=== PATIENT | female | born 1990 | race Caucasian/White ===

== ENCOUNTER 2018-11-02 18:15 | Inpatient (IN) | payer OTHER ==
[~2018-11-02] VITALS: Ht 167.6 cm; Wt 87.3 kg
[2018-11-02] MEDS ORDERED: D5%-LACTATED RINGERS 1,000 ML IV SCH (18:48)
[2018-11-02] MEDS ORDERED: OXYTOCIN 30U/ 0.9% NaCL 500ML 500 ML IV ONE (18:48)
[2018-11-02] MEDS ORDERED: BETAMETHASONE 6 MG/ML, 5ML IM ONE (18:57)
[2018-11-02] MEDS ORDERED: ONDANSETRON 2MG/ML, 2ML IVPush PRN (19:00)
[2018-11-02] MEDS ORDERED: PLEASE ENTER HEIGHT AND WEIGHT MC SCH (19:00)
[2018-11-02] MEDS ORDERED: TERBUTALINE 1 MG/ML, 1ML IVPush PRN (19:00)
[2018-11-02] MEDS ORDERED: PLEASE ENTER ALLERGIES MC SCH (19:00)
[2018-11-02] MEDS ORDERED: TERBUTALINE 1 MG/ML, 1ML SQ PRN (19:00)
[2018-11-02 19:04] LABS: BASOPHILS # (AUTO) 0.06 x10^3/uL (0-0.1); BASOPHILS % (AUTO) 0 % (0-1); EOSINOPHILS # (AUTO) 0.22 x10^3/uL (0-0.4); EOSINOPHILS % (AUTO) 2 % (1-7); LYMPHOCYTES # (AUTO) 2.79 x10^3/uL (1-3.4); LYMPHOCYTES % (AUTO) 19 % (22-44); MD NO; MEAN CORPUSCULAR HEMOGLOBIN 31.3 pg (27.0-34.8); MEAN CORPUSCULAR HGB CONC 33.3 g/dL (32.4-35.8); MEAN CORPUSCULAR VOLUME 94.1 fL (80-100); MEAN PLATELET VOLUME 8.2 fL (7.4-10.4); MONOCYTES # (AUTO) 1.37 x10^3/uL (0.2-0.8); MONOCYTES % (AUTO) 9 % (2-9); NEUTROPHILS # (AUTO) 10.57 x10^3/uL (1.8-6.8); NEUTROPHILS % (AUTO) 70 % (42-75); PLATELET COUNT 357 x10^3/uL (130-400); RED BLOOD COUNT 4.46 x10^6/uL (3.82-5.3)
[2018-11-02] MEDS: CLINDAMYCIN PMX 900MG/50ML 50 ML IVPB SCH (19:05)
[2018-11-02] MEDS: BETAMETHASONE 6 MG/ML, 5ML IM SCH (19:05)
[2018-11-02] MEDS: LACTATED RINGERS 1,000 ML IV SCH (19:10)
[2018-11-02 19:30] VITALS: BP 117/77
[2018-11-02] MEDS ORDERED: SODIUM CITRATE/CITRIC ACID 30 ML UDC PO PRN (19:30)
[2018-11-02] MEDS ORDERED: CALCIUM CARBONATE 500 MG TAB.CHEW PO PRN (19:30)
[2018-11-02] MEDS ORDERED: METOCLOPRAMIDE 5 MG/ML, 2ML IVPush PRN (19:30)
[2018-11-02] MEDS ORDERED: NEWBORN KIT ONE (20:39)
[2018-11-02] MEDS ORDERED: MISOPROSTOL 200 MCG TABLET ONE (20:39)
[2018-11-02] MEDS ORDERED: LIDOCAINE 1%, 20ML ONE (20:39)
[2018-11-02] MEDS ORDERED: OXYTOCIN 30U/ 0.9% NaCL 500ML 500 ML ONE (20:39)
[2018-11-03] MEDS: LACTATED RINGERS 1,000 ML IV SCH ×4 (01:48→14:01)
[2018-11-03] MEDS ORDERED: CLINDAMYCIN PMX 900MG/50ML 50 ML ONE (03:21)
[2018-11-03] MEDS: CLINDAMYCIN PMX 900MG/50ML 50 ML IVPB SCH (03:24)
[2018-11-03] MEDS ORDERED: FENTANYL/BUPIV./NS/PF 250 ML EPIDCONT SCH ×2 (04:50→11:11)
[2018-11-03] MEDS ORDERED: FENTANYL PF 500 MCG, BUPIVACAINE/PF 0.5%, 30ML 62.5 ML in SODIUM CHLORIDE 0.9% 177.5 ML EPIDCONT SCH (05:00)
[2018-11-03] MEDS ORDERED: OXYTOCIN 30U/ 0.9% NaCL 500ML 500 ML IV PRN (07:03)
[2018-11-03] MEDS ORDERED: OXYTOCIN 30U/ 0.9% NaCL 500ML 0 ML ONE (07:07)
[2018-11-03 07:15] VITALS: BP 116/68
[2018-11-03] MEDS: BETAMETHASONE 6 MG/ML, 5ML IM SCH (08:09)
[2018-11-03] MEDS ORDERED: VANCOMYCIN PMX 1GM/200ML 200 ML IV SCH (09:00)
[2018-11-03] MEDS ORDERED: LACTATED RINGERS 1,000 ML IVBOLUS PRN (11:30)
[2018-11-03] MEDS ORDERED: EPHEDRINE 50 MG/ML, 1ML IVPush PRN (11:30)
[2018-11-03] MEDS ORDERED: NALOXONE 0.4 MG/ML, 1ML IVPush PRN (11:30)
[2018-11-03] MEDS ORDERED: LACTATED RINGERS 1,000 ML IV SCH (12:00)
[2018-11-03] MEDS ORDERED: FENTANYL PF 100 MCG/2ML ONE ×3 (12:37→14:47)
[2018-11-03] MEDS: FENTANYL PF 100 MCG/2ML IVPush PRN ×3 (12:43→14:51)
[2018-11-03] MEDS ORDERED: BUPIVACAINE 0.25% ONE ×2 (15:27→15:30)
[2018-11-03] MEDS ORDERED: EPHEDRINE 50 MG/ML, 1ML ONE (16:05)
[2018-11-03] MEDS ORDERED: CALCIUM CARBONATE 500 MG TAB.CHEW ONE (18:14)
[2018-11-03] MEDS ORDERED: OXYcodone IR 5MG TABLET PO PRN (20:00)
[2018-11-03] MEDS ORDERED: MISOPROSTOL 200 MCG TABLET PR PRN (20:00)
[2018-11-03] MEDS ORDERED: ONDANSETRON 2MG/ML, 2ML IV PRN (20:00)
[2018-11-03] MEDS ORDERED: SIMETHICONE 80 MG CHEW TAB PO PRN (20:00)
[2018-11-03] MEDS ORDERED: OXYcodone/APAP 5/325MG TABLET PO PRN (20:00)
[2018-11-03] MEDS ORDERED: OXYTOCIN 30U/ 0.9% NaCL 500ML 500 ML ONE (20:21)
[2018-11-03] MEDS ORDERED: IBUPROFEN 600 MG TABLET ONE (21:51)
[2018-11-03] MEDS: IBUPROFEN 600 MG TABLET PO PRN (21:52)
[2018-11-03] MEDS: OXYTOCIN 30U/ 0.9% NaCL 500ML 500 ML IV SCH (21:53)
[2018-11-03 22:50] VITALS: BP 104/65
[2018-11-04 03:53] LABS: MEAN CORPUSCULAR HEMOGLOBIN 31.8 pg (27.0-34.8); MEAN CORPUSCULAR HGB CONC 33.8 g/dL (32.4-35.8); MEAN CORPUSCULAR VOLUME 94.1 fL (80-100); MEAN PLATELET VOLUME 8.6 fL (7.4-10.4); PLATELET COUNT 308 x10^3/uL (130-400); RED BLOOD COUNT 3.52 x10^6/uL (3.82-5.3); RED CELL DISTRIBUTION WIDTH 13.6 % (9.6-15.2)
[2018-11-04 04:15] LABS: BASOPHILS # (AUTO) 0.05 x10^3/uL (0-0.1); BASOPHILS % (AUTO) 0 % (0-1); EOSINOPHILS # (AUTO) 0.01 x10^3/uL (0-0.4); EOSINOPHILS % (AUTO) 0 % (1-7); LYMPHOCYTES # (AUTO) 2.05 x10^3/uL (1-3.4); LYMPHOCYTES % (AUTO) 9 % (22-44); MD SCAN; MONOCYTES # (AUTO) 2.25 x10^3/uL (0.2-0.8); MONOCYTES % (AUTO) 9 % (2-9); NEUTROPHILS # (AUTO) 19.83 x10^3/uL (1.8-6.8); NEUTROPHILS % (AUTO) 82 % (42-75)
[2018-11-04 04:22] VITALS: BP 112/67
[2018-11-04] MEDS: IBUPROFEN 600 MG TABLET PO PRN ×3 (04:27→16:22)
[2018-11-04] MEDS: OXYTOCIN 30U/ 0.9% NaCL 500ML 500 ML IV SCH ×2 (05:53→15:53)
[2018-11-04 08:10] VITALS: BP 108/70
[2018-11-04] MEDS: PRENATAL VIT/IRON/FA 1 EACH TABLET PO SCH (08:16)
[2018-11-04] MEDS: DOCUSATE 100 MG CAPSULE PO PRN ×2 (08:16→21:53)
[2018-11-04 12:00] VITALS: BP 115/78
[2018-11-04 16:24] VITALS: BP 108/70
[2018-11-04 19:40] VITALS: BP 108/70
[2018-11-04] MEDS ORDERED: CALCIUM CARBONATE 500 MG TAB.CHEW PO PRN (20:00)
[2018-11-04] MEDS ORDERED: CALCIUM CARBONATE 500 MG TAB.CHEW ONE (20:01)
[2018-11-04] MEDS: ACETAMINOPHEN 325 MG TABLET PO PRN (21:54)
[2018-11-05] MEDS: IBUPROFEN 600 MG TABLET PO PRN ×3 (00:09→17:12)
[2018-11-05 07:40] VITALS: BP 123/81
[2018-11-05] MEDS: PRENATAL VIT/IRON/FA 1 EACH TABLET PO SCH (07:51)
[2018-11-05] MEDS: DOCUSATE 100 MG CAPSULE PO PRN ×2 (07:51→19:54)
[2018-11-05] MEDS: ACETAMINOPHEN 325 MG TABLET PO PRN ×2 (12:47→19:54)
[2018-11-05 17:14] VITALS: BP 119/73
[2018-11-05 19:04] LABS: BASOPHILS # (AUTO) 0.05 x10^3/uL (0-0.1); BASOPHILS % (AUTO) 0 % (0-1); EOSINOPHILS # (AUTO) 0.33 x10^3/uL (0-0.4); EOSINOPHILS % (AUTO) 2 % (1-7); LYMPHOCYTES # (AUTO) 3.71 x10^3/uL (1-3.4); LYMPHOCYTES % (AUTO) 21 % (22-44); MD SCAN; MEAN CORPUSCULAR HEMOGLOBIN 31.5 pg (27.0-34.8); MEAN CORPUSCULAR VOLUME 95.5 fL (80-100); MEAN PLATELET VOLUME 8.3 fL (7.4-10.4); MONOCYTES % (AUTO) 10 % (2-9); NEUTROPHILS # (AUTO) 12.06 x10^3/uL (1.8-6.8); NEUTROPHILS % (AUTO) 67 % (42-75); PLATELET COUNT 350 x10^3/uL (130-400); RED BLOOD COUNT 4.05 x10^6/uL (3.82-5.3); RED CELL DISTRIBUTION WIDTH 13.6 % (9.6-15.2)
[2018-11-05 19:40] VITALS: BP 113/74
== END 2018-11-05 22:36 | disposition home or self-care (01) | DRG 807 ==
LOC: LDOP 18:15 → LDIP 18:51 → 2NW 11-03 22:02
PROVIDERS: ADMIT Obstetrics & Gynecology; ATTEND Obstetrics & Gynecology
PROC: 10E0XZZ Delivery of Products of Conception, External Approach (ICD-10-PCS; principal; 2018-11-03)
PROC: 0KQM0ZZ Repair Perineum Muscle, Open Approach (ICD-10-PCS; 2018-11-03)
PROC: 0UQMXZZ Repair Vulva, External Approach (ICD-10-PCS; 2018-11-03)
PROC: 3E0R3BZ Introduction of Anesthetic Agent into Spinal Canal, Percutaneous Approach (ICD-10-PCS; 2018-11-03)
PROC: 00HU33Z Insertion of Infusion Device into Spinal Canal, Percutaneous Approach (ICD-10-PCS; 2018-11-03)
DX: O42.913 Preterm premature rupture of membranes, unspecified as to length of time between rupture and onset of labor, third trimester (principal); Z37.0 Single live birth; Z88.0 Allergy status to penicillin; O69.81X0 Labor and delivery complicated by cord around neck, without compression, not applicable or unspecified; O70.1 Second degree perineal laceration during delivery; O71.82 Other specified trauma to perineum and vulva; Z3A.35 35 weeks gestation of pregnancy; Z82.49 Family history of ischemic heart disease and other diseases of the circulatory system
CPT/HCPCS: 36415; 85025; 86850; 86870; 86900; 86922; 86923; 89060; G0378; J0702; J3010; J3370; J3490; J2590; J7120; Q0114

== ENCOUNTER 2020-10-06 12:39 | Inpatient (IN) | payer OTHER ==
[~2020-10-06] VITALS: Ht 167.6 cm; Wt 89.5 kg
[2020-10-06] MEDS ORDERED: NEWBORN KIT ONE (12:51)
[2020-10-06] MEDS ORDERED: LIDOCAINE 1%, 20ML ONE (12:51)
[2020-10-06] MEDS ORDERED: MISOPROSTOL 200 MCG TABLET ONE ×2 (12:51→12:52)
[2020-10-06] MEDS ORDERED: OXYTOCIN 30U/ 0.9% NaCL 500ML 500 ML ONE (12:52)
[2020-10-06] MEDS ORDERED: ONDANSETRON 2MG/ML, 2ML IVPush PRN ×2 (13:00→14:00)
[2020-10-06] MEDS ORDERED: D5%-LACTATED RINGERS 1,000 ML IV SCH (13:00)
[2020-10-06] MEDS ORDERED: FENTANYL PF 100 MCG/2ML IVPush PRN (13:00)
[2020-10-06] MEDS ORDERED: CALCIUM CARBONATE 500 MG TAB.CHEW PO PRN (13:00)
[2020-10-06] MEDS ORDERED: TERBUTALINE 1 MG/ML, 1ML IVPush PRN (13:00)
[2020-10-06] MEDS ORDERED: TERBUTALINE 1 MG/ML, 1ML SQ PRN (13:00)
[2020-10-06] MEDS ORDERED: OXYTOCIN 30U/ 0.9% NaCL 500ML 500 ML IV ONE (13:00)
[2020-10-06] MEDS ORDERED: FENTANYL PF 100 MCG/2ML IV PRN (13:00)
[2020-10-06] MEDS ORDERED: LACTATED RINGERS 1,000 ML IV SCH ×2 (13:00→14:00)
[2020-10-06] MEDS ORDERED: FENTANYL PF 100 MCG/2ML ONE (13:03)
[2020-10-06 13:21] VITALS: BP 129/85
[2020-10-06] MEDS ORDERED: FENTANYL/BUPIV./NS/PF 250 ML EPIDCONT ONE (13:29)
[2020-10-06] MEDS ORDERED: BUPIVACAINE 0.25% ONE (13:29)
[2020-10-06 13:37] LABS: BASOPHILS % (AUTO) 1 % (0-1); EOSINOPHILS % (AUTO) 0 % (1-7); LYMPHOCYTES % (AUTO) 21 % (22-44); MEAN CORPUSCULAR HEMOGLOBIN 30.8 pg (27.0-34.8); MEAN CORPUSCULAR HGB CONC 33.4 g/dL (32.4-35.8); MEAN PLATELET VOLUME 8.8 fL (7.4-10.4); MONOCYTES % (AUTO) 8 % (2-9); NEUTROPHILS % (AUTO) 69 % (42-75); PLATELET COUNT 301 x10^3/uL (130-400); RED BLOOD COUNT 4.23 x10^6/uL (3.82-5.3); RED CELL DISTRIBUTION WIDTH 14.9 % (9.6-15.2)
[2020-10-06] MEDS ORDERED: EPHEDRINE 50 MG/ML, 1ML IVPush PRN (14:00)
[2020-10-06] MEDS ORDERED: DIPHENHYDRAMINE 50 MG/ML, 1ML IVPush PRN (14:00)
[2020-10-06] MEDS ORDERED: NALOXONE 0.4 MG/ML, 1ML IVPush PRN (14:00)
[2020-10-06] MEDS ORDERED: LACTATED RINGERS 1,000 ML IVBOLUS PRN (14:00)
[2020-10-06] MEDS ORDERED: FENTANYL/BUPIV./NS/PF 250 ML EPIDCONT SCH (14:00)
[2020-10-06] MEDS ORDERED: PREN1TAB60 PO (14:40)
[2020-10-06] MEDS ORDERED: ACET-1600 PO (14:41)
[2020-10-06] MEDS ORDERED: CALC200T3 PO (14:41)
[2020-10-06] MEDS: OXYTOCIN 30U/ 0.9% NaCL 500ML 500 ML IV SCH (16:00)
[2020-10-06] MEDS ORDERED: OXYcodone/APAP 5/325MG TABLET PO PRN ×2 (16:00)
[2020-10-06] MEDS ORDERED: MISOPROSTOL 200 MCG TABLET PR PRN (16:00)
[2020-10-06] MEDS ORDERED: METHYLERGONOVINE 0.2 MG/ML IM PRN (16:00)
[2020-10-06] MEDS ORDERED: ONDANSETRON 2MG/ML, 2ML IV PRN (16:00)
[2020-10-06] MEDS ORDERED: SIMETHICONE 80 MG CHEW TAB PO PRN (16:00)
[2020-10-06] MEDS ORDERED: DOCUSATE 100 MG CAPSULE PO PRN (16:00)
[2020-10-06] MEDS ORDERED: ACETAMINOPHEN 325 MG TABLET PO PRN (16:00)
[2020-10-06 17:45] VITALS: BP 104/86
[2020-10-06 20:30] VITALS: BP 106/71
[2020-10-06] MEDS: IBUPROFEN 800 MG TABLET PO PRN (22:56)
[2020-10-06 23:27] LABS: MEAN CORPUSCULAR HEMOGLOBIN 30.4 pg (27.0-34.8); MEAN PLATELET VOLUME 8.9 fL (7.4-10.4); PLATELET COUNT 260 x10^3/uL (130-400); RED BLOOD COUNT 4.08 x10^6/uL (3.82-5.3); RED CELL DISTRIBUTION WIDTH 14.9 % (9.6-15.2)
[2020-10-06 23:57] LABS: BAND#(MANUAL) 0.21 x10^3/uL; BANDS%(MANUAL) 1 % (0-7); LYMPH#(MANUAL) 2.95 x10^3/uL (1-3.4); LYMPHS% (MANUAL) 14 % (22-44); MONOS#(MANUAL) 2.11 x10^3/uL (0.3-2.7); MONOS% (MANUAL) 10 % (2-9); REACTIVE LYMPHS # (MANUAL) 0.84 x10^3/uL (0-0); REACTIVE LYMPHS % (MANUAL) 4 % (0-0); SEG#(MANUAL) 14.98 x10^3/uL (1.8-6.8); SEGS% (MANUAL) 71 % (42-75)
[2020-10-06 23:58] LABS: <PLATELET ESTIMATE> ADEQUATE; <RBC MORPHOLOGY> NORMAL; LARGE PLATELETS 1+
[2020-10-07 00:30] VITALS: BP 106/68
[2020-10-07] MEDS: OXYTOCIN 30U/ 0.9% NaCL 500ML 500 ML IV SCH ×2 (02:00→12:00)
[2020-10-07 03:40] VITALS: BP 100/66
[2020-10-07] MEDS ORDERED: PRENATAL VIT/IRON/FA 1 EACH TABLET PO SCH (09:00)
[2020-10-07 09:27] VITALS: BP 109/70
[2020-10-07] MEDS: IBUPROFEN 800 MG TABLET PO PRN (09:44)
[2020-10-07 12:21] VITALS: BP 111/73
[2020-10-07] MEDS ORDERED: IBUP-1222 PO (13:57)
== END 2020-10-07 16:22 | disposition home or self-care (01) | DRG 807 ==
LOC: LDOP 12:39 → LDIP 12:50 → 2NW 17:46
PROVIDERS: ADMIT Obstetrics & Gynecology; ATTEND Obstetrics & Gynecology
PROC: 10E0XZZ Delivery of Products of Conception, External Approach (ICD-10-PCS; principal; 2020-10-06)
PROC: 0KQM0ZZ Repair Perineum Muscle, Open Approach (ICD-10-PCS; 2020-10-06)
PROC: 3E0R3BZ Introduction of Anesthetic Agent into Spinal Canal, Percutaneous Approach (ICD-10-PCS; 2020-10-06)
PROC: 00HU33Z Insertion of Infusion Device into Spinal Canal, Percutaneous Approach (ICD-10-PCS; 2020-10-06)
DX: O77.0 Labor and delivery complicated by meconium in amniotic fluid (principal); Z37.0 Single live birth; O70.1 Second degree perineal laceration during delivery; O43.193 Other malformation of placenta, third trimester; Z3A.40 40 weeks gestation of pregnancy; Z82.3 Family history of stroke; Z82.49 Family history of ischemic heart disease and other diseases of the circulatory system; Z20.822 Contact with and (suspected) exposure to COVID-19; Z88.0 Allergy status to penicillin
CPT/HCPCS: 36415; 85025; 86592; 86850; 86900; 87635; G0378; J3010; J7120